=== PATIENT | female | born 1955 | race Caucasian/White ===

== ENCOUNTER → 2016-09-06 | Outpatient (CLI) | payer BC ==
[~2016-09-06] MED LIST: ACYC1CAP8 PO; ALBU1AER9 INH; CHOL100010 PO; CLTP PO; FLVHFA110 INH; MELO7.5T7 PO; MULT-506 PO; RANI150T3 PO; citrucel PO
== END | disposition home or self-care (01) ==
LOC: C.PAPS 14:14
PROVIDERS: ATTEND Obstetrics & Gynecology
DX: Z01.419 Encounter for gynecological examination (general) (routine) without abnormal findings (principal); Z78.0 Asymptomatic menopausal state

== ENCOUNTER → 2016-12-10 | Outpatient (CLI) | payer BC ==
[~2016-12-10] MED LIST changes: +ACYC-57 PO; -ACYC1CAP8 PO; +ASPEC81 PO; +CONJ0.3T3 PO; +FEXO1TAB49 PO; +FSMD/70 PO; +VENL37.593 PO
== END | disposition home or self-care (01) ==
LOC: C.MAMM 10:35
PROVIDERS: ATTEND Internal Medicine Endocrinology, Diabetes & Metabolism
DX: M81.0 Age-related osteoporosis without current pathological fracture (principal); M85.851 Other specified disorders of bone density and structure, right thigh; M85.852 Other specified disorders of bone density and structure, left thigh

== ENCOUNTER → 2017-01-17 | Outpatient (CLI) | payer BC | END | disposition home or self-care (01) | LOC: C.RDSM 08:06 | PROVIDERS: ATTEND Physical Medicine & Rehabilitation Sports Medicine | DX: M18.12 Unilateral primary osteoarthritis of first carpometacarpal joint, left hand (principal) ==

== ENCOUNTER 2017-06-10 02:28 | Observation (INO) | payer BC ==
[~2017-06-10] VITALS: Ht 157.5 cm; Wt 67.0 kg
[~2017-06-10 02:28] MED LIST changes: -ACYC-57 PO; +ACYC1CAP8 PO; -ASPEC81 PO; -CONJ0.3T3 PO; -FEXO1TAB49 PO; -FSMD/70 PO; -VENL37.593 PO
[2017-06-10] MEDS ORDERED: FEXO1TAB49 PO (03:02)
[2017-06-10] MEDS ORDERED: FSMD/70 PO (03:05)
[2017-06-10] MEDS ORDERED: CONJ0.3T3 PO (03:06)
[2017-06-10] MEDS ORDERED: VENL37.593 PO (03:08)
[2017-06-10 03:17] LABS: MANUAL MICROSCOPIC REQUIRED? NO; REVIEW REQ? NO; URINE APPEARANCE CLEAR (CLEAR); URINE BILIRUBIN NEG (NEG); URINE COLOR YELLOW; URINE EPITHELIAL CELL AUTO >30 /lpf (0-5); URINE NITRITE NEG (NEG); URINE PH 5.5 (4.5-7.5); URINE SPECIFIC GRAVITY 1.027 (1.000-1.030); UROBILINOGEN NEG (NEG); ZZUR CULT IF INDIC CLEAN CATCH YES
--- NOTE | 2017-06-10 03:25 | EMERGENCY ROOM VISIT NOTE ---
History Report prepared by Carmen: Destin Jackson Under the Supervision of: Dr. Maryellen Taylor D.O. First contact with patient: 02:41 Chief Complaint: OTHER COMPLAINT Stated Complaint: MEMORY LOSS UP TO 6 MONTHS History of Present Illness The patient is a 62 year old female who presents to the Emergency Room with complaints of constant memory loss and confusion starting between 0100 to 0200. The patient's son states that the patient was normally on the computer around 0100, and then at 0200 she came to him, and she was confused. Additionally, the son states that the patient was complaining of a coughing fit. The patient recently was put on an inhaler for her asthma either yesterday or today for a worsening cough over the past couple of months. The family states that the patient is not remember things from a long time ago as well as recent things, and she has been asking the same questions repeatedly. The family states that everything was normal yesterday prior to this episode, thought they state that the patient had a fall off of a ladder a few days ago, though she was fine afterwards. Pt denies headache, change in vision, fevers, chest pain, shortness of breath, nausea, vomiting, diarrhea, pain with urination, and melena. Source of History: patient, family Onset: [id number] this morning Position: other (global) Quality: other (memory loss) Timing: constant Note: Associated symptoms: Confusion Review of Systems See HPI for pertinent positives & negatives. A total of 10 systems reviewed and were otherwise negative. Past Medical & Surgical Medical Problems: (1) Diverticulosis (2) Memory loss (3) Transient global amnesia Surgical Problems: (1) Hx of tubal ligation Social History Smoking Status: Never Smoker Alcohol Use: none Marital Status: Housing Status: lives with family Occupation Status: retired Current/Historical Medications Scheduled Albuterol (Proair Hfa), 2 PUFFS INH PRN Alendronate/Cholecalciferol (Fosamax+D 70MG/2800 Iu), 1 TABLET PO WK Aspirin (Aspirin EC Low Dose), 81 MG PO DAILY Calcium/Vitamin D (Caltrate 600 Plus *), 1 TAB PO BID Cholecalciferol (Vitamin D), 3,000 INTER.UNIT PO DAILY Estrog Conj/Medryoxyprog Acet (Prempro 0.3MG/1.5MG), 1 TAB PO DAILY Fexofenadine Hcl (Therese Allergy), Unknown Dose PO DAILY Fluticasone Propionate (Flovent Hfa 110MCG Inhaler *), 2 PUFF INH BID Multivitamin (Multivitamin), 1 TAB PO DAILY Venlafaxine Hcl (Venlafaxine Extended Rel), 37.5 MG PO BID [citrucel], 1 TAB PO DAILY Allergies Coded Allergies: Shellfish (Verified Allergy, Unknown, unknown, 06/10/17) Physical Exam Vital Signs Date Time Temp Pulse Resp B/P (MAP) Pulse Ox O2 Delivery O2 Flow Rate FiO2 06/10/17 04:55 85 18 143/97 96 Room Air 06/10/17 03:42 86 18 141/90 97 Room Air 06/10/17 02:47 94 06/10/17 02:36 36.8 93 20 171/98 96 Room Air Physical Exam GENERAL: alert, well appearing, well nourished, no distress, non-toxic EYE EXAM: normal conjunctiva, PERRL and EOM's grossly intact OROPHARYNX: no exudate, no erythema, lips, buccal mucosa, and tongue normal and mucous membranes are moist NECK: supple, no nuchal rigidity, no adenopathy, non-tender LUNGS: Clear to auscultation. Normal chest wall mechanics HEART: no murmurs, S1 normal and S2 normal ABDOMEN: abdomen soft, non-tender, normo-active bowel sounds, no masses, no rebound or guarding. BACK: Back is symmetrical on inspection and there is no deformity, no midline tenderness, no CVA tenderness. SKIN: no rashes and no bruising UPPER EXTREMITIES: upper extremities are grossly normal. LOWER EXTREMITIES: No pitting edema. NEURO EXAM: Normal sensorium, cranial nerves II-XII intact, normal speech, no weakness of arms, no weakness of legs. No drift. Finger to nose intact. Sensation intact. Orientation could not remember the month, president, and stated that the month was 2015. GCS 15 Medical Decision & Procedures ER Provider Diagnostic Interpretation: X-ray results have been interpreted by me. CHEST ONE VIEW PORTABLE: No cardiomegaly. No effusion. No wide mediastinum. No focal infiltrate. Radiology results have been interpreted by the radiologist and reviewed by me. CT HEAD: No ICH, mass effect or edema. No skull fracture. Polyp or mucous retention cyst in left maxillary sinus. Radiologist: Janna Gurrola M.D. Laboratory Results 06/10/17 03:22 Red Blood Count 4.42, Mean Corpuscular Volume 89.6, Mean Corpuscular Hemoglobin 31.4, Mean Corpuscular Hemoglobin Concent 35.1, Mean Platelet Volume 9.1, Neutrophils (%) (Auto) 58.7, Lymphocytes (%) (Auto) 25.5, Monocytes (%) (Auto) 13.7, Eosinophils (%) (Auto) 1.0, Basophils (%) (Auto) 0.3, Neutrophils # (Auto ) 5.17, Lymphocytes # (Auto) 2.25, Monocytes # (Auto) 1.21, Eosinophils # (Auto ) 0.09, Basophils # (Auto) 0.03 06/10/17 03:22 Test 06/10/17 03:07 06/10/17 03:22 Urine Color YELLOW Urine Appearance CLEAR (CLEAR) Urine pH 5.5 (4.5-7.5) Urine Specific [place] 1.027 (1.000-1.030) Urine Protein NEG (NEG) Urine Glucose (UA) NEG (NEG) Urine Ketones TRACE (NEG) Urine Occult Blood NEG (NEG) Urine Nitrite NEG (NEG) Urine Bilirubin NEG (NEG) Urine Urobilinogen NEG (NEG) Urine Leukocyte Esterase MODERATE (NEG) Urine WBC (Auto) 10-30 /hpf (0-5) Urine RBC (Auto) 0-4 /hpf (0-4) Urine Hyaline Casts (Auto) 1-5 /lpf (0-5) Urine Epithelial Cells (Auto) >30 /lpf (0-5) Urine Bacteria (Auto) NEG (NEG) White Blood Count 8.82 K/uL (4.8-10.8) Red Blood Count 4.42 M/uL (4.2-5.4) Hemoglobin 13.9 g/dL (12.0-16.0) Hematocrit 39.6 % (37-47) Mean Corpuscular Volume 89.6 fL (80-100) Mean Corpuscular Hemoglobin 31.4 pg (25-34) Mean Corpuscular Hemoglobin Concent 35.1 g/dl (32-36) Platelet Count 282 K/uL (130-400) Mean Platelet Volume 9.1 fL (7.4-10.4) Neutrophils (%) (Auto) 58.7 % Lymphocytes (%) (Auto) 25.5 % Monocytes (%) (Auto) 13.7 % Eosinophils (%) (Auto) 1.0 % Basophils (%) (Auto) 0.3 % Neutrophils # (Auto) 5.17 K/uL (1.4-6.5) Lymphocytes # (Auto) 2.25 K/uL (1.2-3.4) Monocytes # (Auto) 1.21 K/uL (0.11-0.59) Eosinophils # (Auto) 0.09 K/uL (0-0.5) Basophils # (Auto) 0.03 K/uL (0-0.2) RDW Standard Deviation 44.4 fL (36.4-46.3) RDW Coefficient of Variation 13.5 % (11.5-14.5) Immature Granulocyte % (Auto) 0.8 % Immature Granulocyte # (Auto) 0.07 K/uL (0.00-0.02) Prothrombin Time 10.1 SECONDS (9.0-12.0) Prothromb Time International Ratio 0.9 (0.9-1.1) Anion Gap 8.0 mmol/L (3-11) Est Creatinine Clear Calc Drug Dose 71.2 ml/min Estimated GFR () 101.6 Estimated GFR (Non- 87.7 BUN/Creatinine Ratio 31.1 (10-20) Estimated Average Glucose 103 mg/dl Hemoglobin A1c 5.2 % (4.5-5.6) Lactic Acid Level 1.4 mmol/L (0.4-2.0) Calcium Level 8.9 mg/dl (8.5-10.1) Phosphorus Level 2.8 mg/dl (2.5-4.9) Magnesium Level 2.3 mg/dl (1.8-2.4) Total Bilirubin 0.2 mg/dl (0.2-1) Aspartate Amino Transf (AST/SGOT) 17 U/L (15-37) Alanine Aminotransferase (ALT/SGPT) 32 U/L (12-78) Alkaline Phosphatase 77 U/L (45-117) Troponin I < 0.015 ng/ml (0-0.045) Total Protein 7.6 gm/dl (6.4-8.2) Albumin 3.9 gm/dl (3.4-5.0) Globulin 3.7 gm/dl (2.5-4.0) Albumin/Globulin Ratio 1.1 (0.9-2) Thyroid Stimulating Hormone (TSH) 4.350 uIu/ml (0.300-4.500) Ethyl Alcohol mg/dL < 3.0 mg/dl (0-3) Lyme Disease IgG Antibody NEG (NEG) Lyme Disease IgM Antibody NEG (NEG) Hepatitis C Antibody Screen NEG (NEG) Date/Time Source Procedure Growth Status 06/10/17 03:07 Urine , Clean Catch Urine Culture - Final MORE THAN THREE TYPES OF ORGANISMS OH... Complete Laboratory results per my review. Medications Administered Medications (Trade) Dose Ordered Sig/Marie Route Start Time Stop Time Status Last Admin Dose Admin Aspirin/Aluminum/ Magnesium/Ca Carb (Ascriptin Tab) 325 mg NOW STAT PO 06/10/17 04:44 06/10/17 04:45 DC 06/10/17 04:55 325 MG Cephalexin Monohydrate (Keflex Cap) 500 mg NOW ONCE PO 06/10/17 05:15 06/10/17 05:18 DC 06/10/17 05:29 500 MG ECG Indication: other (memory loss) Rate (beats per minute): 88 Rhythm: normal sinus Findings: no acute ischemic change, no ectopy, other (Normal intervals and axis ) ED Course 0241: The patient was evaluated in room B12. A complete history and physical exam was performed. 0444: Ascriptin 325mg PO 0506: I reevaluated the patient, and she had no change. She is still asking the same repetitive questions. 0515: Keflex Cap 500mg PO 0516: I reviewed the patient's case with Dr. Moser. He will evaluate the patient for further management. Medical Decision Differential diagnosis: Etiologies such as metabolic, infection, hypoglycemia, electrolyte abnormalities , cardiac sources, intracerebral event, toxicologic, neurologic, as well as others were entertained. Pt well appearing here and NIHSS 1. Nonfocal neuro exam at bedside and symptoms more confusion. Pt knows family/address/location, repetitive questions. No evidence of trauma on CT and on exam despite recent history. I feel more likely transient global amnesia however given age and hx of htn, needs evaluation for stroke. Given ASA after CT as a precaution. Mild UA abnormalities, started on keflex as a precaution and urine sent, however I doubt acute memory loss due to UTI. No evidence of bacteremia/sepsis. Pt nervous about upcoming trip, however family denies any other recent changes or stressors. No med changes. Doubt related to drug/etoh use. Mild htn noted in the ER, thought most likely due to anxiety over situation, however needs monitoring. I did not feel pt presentation consistent with acute cva, did not feel pt warranted tPA. NIHSS <4. Head Trauma GCS Score: 15 Medication Reconcilliation Current Medication List: was personally reviewed by me Blood Pressure Screening Patient's blood pressure: Elevated blood pressure Blood pressure disposition: Elevated BP felt to be situational Monitored by the hospitalist Consults Time Called: 050 Consulting Physician: Dr. Moser Returned Call: 0516 I reviewed the patient's case with Dr. Moser. He will evaluate the patient for further management. Impression Primary Impression: Altered mental status Additional Impression: Amnesia Scribe Attestation The scribe's documentation has been prepared under my direction and personally reviewed by me in its entirety. I confirm that the note above accurately reflects all work, treatment, procedures, and medical decision making performed by me. Departure Information Dispostion Being Evaluated By Hospitalist Prescriptions Aspirin (Aspirin EC Low Dose) 81 Mg Ectab 81 MG PO DAILY, #90 TABS 3 Refills Prov: Todd Del Angel MD 06/10/17 Referrals Rahul Rothman M.D. (PCP) Patient Instructions My [facility] Health Problem Qualifiers Primary Impression: Altered mental status Altered mental status type: unspecified Qualified Codes: R41.82 - Altered mental status, unspecified
[2017-06-10 03:31] LABS: BASO % 0.3 %; BASO ABS # 0.03 K/uL (0-0.2); COMPLETE YES; HEMATOCRIT 39.6 % (37-47); IG% 0.8 %; LYMPH % 25.5 %; LYMPH ABS # 2.25 K/uL (1.2-3.4); MEAN CELL VOLUME 89.6 fL (80-100); MEAN CORPUSCULAR HEMOGLOBIN 31.4 pg (25-34); MEAN CORPUSCULAR HGB CONC 35.1 g/dl (32-36); MEAN PLATELET VOLUME 9.1 fL (7.4-10.4); MONO % 13.7 %; NEUT % 58.7 %; PLATELET COUNT 282 K/uL (130-400); RED BLOOD COUNT 4.42 M/uL (4.2-5.4); WHITE BLOOD COUNT 8.82 K/uL (4.8-10.8)
[2017-06-10 03:44] LABS: INR 0.9 (0.9-1.1); PROTHROMBIN TIME (PATIENT) 10.1 SECONDS (9.0-12.0)
[2017-06-10 03:50] LABS: ALT/SGPT 32 U/L (12-78); AST/SGOT 17 U/L (15-37); BLOOD UREA NITROGEN 23 mg/dl (7-18); BUN/CREATININE RATIO 31.1 (10-20); CALCIUM 8.9 mg/dl (8.5-10.1); CARBON DIOXIDE 27 mmol/L (21-32); CHLORIDE 102 mmol/L (98-107); CREATININE 0.73 mg/dl (0.60-1.20); GLUCOSE 96 mg/dl (70-99); MAGNESIUM 2.3 mg/dl (1.8-2.4); POTASSIUM 3.7 mmol/L (3.5-5.1); SODIUM 137 mmol/L (136-145)
[2017-06-10 04:01] LABS: ALB/GLOB RATIO 1.1 (0.9-2); ALKALINE PHOSPHATASE 77 U/L (45-117); PHOSPHORUS 2.8 mg/dl (2.5-4.9)
[2017-06-10 04:19] LABS: LYME DISEASE AB IGG NEG (NEG); LYME DISEASE AB IGM NEG (NEG)
[2017-06-10] MEDS ORDERED: ASPIRIN/ALUM/MAGNES/CAL CARB 325 MG TAB PO STA (04:44)
[2017-06-10] MEDS ORDERED: CEPHALEXIN MONOHYDRATE 250 MG CAP PO ONE (05:15)
[2017-06-10] MEDS ORDERED: PHARMACIST DISCHARGE MED REC CONSULT PRN (05:45)
[2017-06-10] MEDS ORDERED: ALBUTEROL HFA 8 GM INHALER INH PRN (05:45)
--- NOTE | 2017-06-10 06:07 | History and Physical ---
History & Physical Date & Time of Service: Jun 10, 2017 at 05:49 Chief Complaint: Memory Loss Up To 6 Months Primary Care Physician: Rahul Rothman M.D. History of Present Illness Source: patient, family 62 y/o F Hx asthma, depression. Pt had acute onset of memory loss the prior afternoon. She was repeating herself and could not recall what she had been doing earlier in the day. She denies a headache, slurred speech, unilateral weakness or recent illness. She has had coughing fits related to asthma recently. She also describes falling off a ladder 4 days ago but denies she suffered any head trauma. She is oriented x 2 at the time of arrival and perseverating on a trip to [place] which her and her are supposed to take this afternoon. Past Medical/Surgical History Medical Problems: (1) Diverticulosis Status: Resolved Surgical Problems: (1) Hx of tubal ligation Status: Resolved Social History Smoking Status: Never Smoker Marital Status: Housing status: lives with family Occupational Status: retired Multi-Drug Resistant Organisms History of MDRO: No Allergies Coded Allergies: Shellfish (Verified Allergy, Unknown, unknown, 06/10/17) Home Medications Scheduled Albuterol (Proair Hfa), 2 PUFFS INH PRN Alendronate/Cholecalciferol (Fosamax+D 70MG/2800 Iu), 1 TABLET PO WK Calcium/Vitamin D (Caltrate 600 Plus *), 1 TAB PO BID Cholecalciferol (Vitamin D), 3,000 INTER.UNIT PO DAILY Estrog Conj/Medryoxyprog Acet (Prempro 0.3MG/1.5MG), 1 TAB PO DAILY Fexofenadine Hcl (Therese Allergy), Unknown Dose PO DAILY Fluticasone Propionate (Flovent Hfa 110MCG Inhaler *), 2 PUFF INH BID Meloxicam (Mobic), 7.5 MG PO DAILY Multivitamin (Multivitamin), 1 TAB PO DAILY Venlafaxine Hcl (Venlafaxine Extended Rel), 37.5 MG PO BID [citrucel], 1 TAB PO DAILY Physical Exam Vital Signs Date Time Temp Pulse Resp B/P (MAP) Pulse Ox O2 Delivery O2 Flow Rate FiO2 06/10/17 04:55 85 18 143/97 96 Room Air 06/10/17 03:42 86 18 141/90 97 Room Air 06/10/17 02:47 94 06/10/17 02:36 36.8 93 20 171/98 96 Room Air General Appearance: WD/WN, + pertinent finding (Average weight, middle aged F - appears hyperactive - no acute distress) Head: normocephalic Eyes: normal inspection ENT: normal ENT inspection, pharynx normal Neck: supple, no JVD Respiratory/Chest: chest non-tender, lungs clear, normal breath sounds Cardiovascular: regular rate, rhythm, no edema, no gallop Abdomen/GI: normal bowel sounds, non tender, soft Back: normal inspection, no CVA tenderness, no muscle spasm, normal range of motion Extremities/Musculoskelatal: normal inspection, no calf tenderness, normal capillary refill Neurologic/Psych: certified orthoptist II-XII nml as tested, no motor/sensory deficits, alert, normal mood/affect, normal reflexes, + pertinent finding (There are no motor or sensory deficits - the pt cannot recall the date including month/year) Skin: normal color, warm/dry, no rash Diagnostics Laboratory Results Results Past 24 Hours Test 06/10/17 03:07 06/10/17 03:22 06/10/17 05:45 Range/Units Urine Color YELLOW Urine Appearance CLEAR CLEAR Urine pH 5.5 4.5-7.5 Urine Specific [place] 1.027 1.000-1.030 Urine Protein NEG NEG Urine Glucose (UA) NEG NEG Urine Ketones TRACE NEG Urine Occult Blood NEG NEG Urine Nitrite NEG NEG Urine Bilirubin NEG NEG Urine Urobilinogen NEG NEG Urine Leukocyte Esterase MODERATE NEG Urine WBC (Auto) 10-30 0-5 /hpf Urine RBC (Auto) 0-4 0-4 /hpf Urine Hyaline Casts (Auto) 1-5 0-5 /lpf Urine Epithelial Cells (Auto) >30 0-5 /lpf Urine Bacteria (Auto) NEG NEG White Blood Count 8.82 4.8-10.8 K/uL Red Blood Count 4.42 4.2-5.4 M/uL Hemoglobin 13.9 12.0-16.0 g/dL Hematocrit 39.6 37-47 % Mean Corpuscular Volume 89.6 80-100 fL Mean Corpuscular Hemoglobin 31.4 25-34 pg Mean Corpuscular Hemoglobin Concent 35.1 32-36 g/dl Platelet Count 282 130-400 K/uL Mean Platelet Volume 9.1 7.4-10.4 fL Neutrophils (%) (Auto) 58.7 % Lymphocytes (%) (Auto) 25.5 % Monocytes (%) (Auto) 13.7 % Eosinophils (%) (Auto) 1.0 % Basophils (%) (Auto) 0.3 % Neutrophils # (Auto) 5.17 1.4-6.5 K/uL Lymphocytes # (Auto) 2.25 1.2-3.4 K/uL Monocytes # (Auto) 1.21 0.11-0.59 K/uL Eosinophils # (Auto) 0.09 0-0.5 K/uL Basophils # (Auto) 0.03 0-0.2 K/uL RDW Standard Deviation 44.4 36.4-46.3 fL RDW Coefficient of Variation 13.5 11.5-14.5 % Immature Granulocyte % (Auto) 0.8 % Immature Granulocyte # (Auto) 0.07 0.00-0.02 K/uL Prothrombin Time 10.1 9.0-12.0 SECONDS Prothromb Time International Ratio 0.9 0.9-1.1 Sodium Level 137 136-145 mmol/L Potassium Level 3.7 3.5-5.1 mmol/L Chloride Level 102 98-107 mmol/L Carbon Dioxide Level 27 21-32 mmol/L Anion Gap 8.0 3-11 mmol/L Blood Urea Nitrogen 23 7-18 mg/dl Creatinine 0.73 0.60-1.20 mg/dl Est Creatinine Clear Calc Drug Dose 71.2 ml/min Estimated GFR () 101.6 Estimated GFR (Non- 87.7 BUN/Creatinine Ratio 31.1 10-20 Random Glucose 96 70-99 mg/dl Lactic Acid Level 1.4 0.4-2.0 mmol/L Calcium Level 8.9 8.5-10.1 mg/dl Phosphorus Level 2.8 2.5-4.9 mg/dl Magnesium Level 2.3 1.8-2.4 mg/dl Total Bilirubin 0.2 0.2-1 mg/dl Aspartate Amino Transf (AST/SGOT) 17 15-37 U/L Alanine Aminotransferase (ALT/SGPT) 32 12-78 U/L Alkaline Phosphatase 77 45-117 U/L Troponin I < 0.015 0-0.045 ng/ml Total Protein 7.6 6.4-8.2 gm/dl Albumin 3.9 3.4-5.0 gm/dl Globulin 3.7 2.5-4.0 gm/dl Albumin/Globulin Ratio 1.1 0.9-2 Thyroid Stimulating Hormone (TSH) 4.350 0.300-4.500 uIu/ml Ethyl Alcohol mg/dL < 3.0 0-3 mg/dl Lyme Disease IgG Antibody NEG NEG Lyme Disease IgM Antibody NEG NEG Microbiology Results 06/10/17 Urine Culture, Received Pending Diagnostic Radiology CT head - no acute findings Normal EKG Impression Assessment and Plan 62 y/o F Hx asthma, depression. Pt had acute onset of memory loss the prior afternoon. She was repeating herself and could not recall what she had been doing earlier in the day. She denies a headache, slurred speech, unilateral weakness or recent illness. She has had coughing fits related to asthma recently. She also describes falling off a ladder 4 days ago but denies she suffered any head trauma. She is oriented x 2 at the time of arrival and perseverating on a trip to [place] which her and her are supposed to take this afternoon. 1) Acute memory loss - no additional focal deficits noted - MRA/MRA ordered, neuro consul requested. TGA is more likely than acute CVA however, she will receive ASA and a Statin pending neuro evaluation. 2) Asthma - cont Albuterol, Fluticasone 3) Depression - cont Venlafaxine Full code - Heparin prophylaxis Total time for this admit including review of labs, meds, imaging - discussion with pt and ER attending - 38 min Level of Care Telemetry Resuscitation Status FULL RESUSCITATION VTE Prophylaxis VTE Risk Assessment Done? Y/N: Yes Risk Level: Low Given or contraindicated: Enoxaparin (Lovenox)SQ
[2017-06-10] MEDS ORDERED: IV FLUIDS COMPLETED PRN (06:30)
--- NOTE | 2017-06-10 06:32 | DIAGNOSTIC IMAGING REPORT ---
HEAD WITHOUT CONTRAST (CT) CLINICAL HISTORY: 62 years-old Female with confusion, ?trauma. Acute confusion status post trauma TECHNIQUE: Multiple axial CT images of the head were obtained without contrast. A dose lowering technique was utilized adhering to the principles of ALARA. CT DOSE: 537.48 mGy.cm COMPARISON: CT head 09/19/2011. FINDINGS: No acute intracranial hemorrhage, midline shift, mass, large territorial ischemia or abnormal extra-axial collection. The calvarium is intact. The mastoid air cells, and middle ear cavities are clear. Moderate polypoid mucosal thickening of the left maxillary sinus. IMPRESSION: No acute intracranial abnormality. The above report was generated using voice recognition software. It may contain grammatical, syntax or spelling errors. Electronically signed by: James Vaz M.D. 06/10/2017 6:30 AM Dictated Date/Time: 06/10/2017 6:29 AM
--- NOTE | 2017-06-10 06:36 | DIAGNOSTIC IMAGING REPORT ---
CHEST ONE VIEW PORTABLE HISTORY: 62 years-old Female confusion acute confusion with memory loss COMPARISON: None available TECHNIQUE: Portable upright AP view of the chest FINDINGS: Cardiac mediastinal and hilar silhouettes are within normal limits. No pneumothorax, pleural effusion, focal airspace consolidation or overt pulmonary edema. Evidence of prior rotator cuff repair of the right shoulder. 4 mm bony density adjacent to the right humeral greater tuberosity suspicious for rotator cuff calcific tendinosis. Bones are grossly intact. Degenerative changes are seen about the bilateral shoulders. IMPRESSION: No acute cardiopulmonary process. The above report was generated using voice recognition software. It may contain grammatical, syntax or spelling errors. Electronically signed by: James Vaz M.D. 06/10/2017 6:34 AM Dictated Date/Time: 06/10/2017 6:33 AM
[2017-06-10 06:40] VITALS: BP 159/100; PULSE 89; TEMP 37.2; O2SAT 93; Ht 157.5 cm; Wt 67.0 kg
[2017-06-10 07:21] LABS: ESTIMATED AVERAGE GLUCOSE 103 mg/dl; HA1C FLAG Normal (Normal)
[2017-06-10 07:44] VITALS: BP 144/85; PULSE 87; TEMP 36.7; O2SAT 96
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
[2017-06-10] MEDS ORDERED: VENLAFAXINE HCL 37.5 MG TAB PO SCH (09:00)
[2017-06-10] MEDS ORDERED: ATORVASTATIN 20 MG TAB PO SCH (09:00)
[2017-06-10] MEDS ORDERED: ASPIRIN/ALUM/MAGNES/CAL CARB 325 MG TAB PO SCH (09:00)
[2017-06-10 11:21] VITALS: BP 136/84; PULSE 76; TEMP 36.9; O2SAT 96
--- NOTE | 2017-06-10 12:47 | ECHOCARDIOGRAM REPORT ---
*NOTICE TO RECEIVING DEMOCRAT AGENCY This information is strictly Confidential and protected under [place] law. [place] law prohibits you from making any further disclosure of this information unless further disclosure is expressly permitted by the written consent of the person to whom it pertains or is authorized by law. A general authorization for the release of medical or other information is not sufficient for this purpose. Hospital accepts no responsibility if the information is made available to any other person, INCLUDING THE PATIENT. Interpretation Summary * Name: АНДРЕЙ STOVER Study Date: 06/10/2017 10:17 AM BP: 144/85 mmHg * Patient Location: C.2E\S\E212\S\1 HR: 87 * : 1955 (M/d/yyyy) Gender: Female Height: 62 in * Age: 62 yrs Ethnicity: CA Weight: 147 lb * Ordering Physician: Todd Del Angel * Performed By: Geneva Merida RDCS * * Reason For Study: TIA, EVAL FOR SOURCE OF THROMBUS * BSA: 1.7 m2 * -- Conclusions -- * Left ventricular systolic function is normal. * Grade I diastolic dysfunction, (abnormal relaxation pattern). * Injection of contrast documented no interatrial shunt. * No obvious source of cardiac emboli, but image quality was suboptimal. Procedure Details * A complete two-dimensional transthoracic echocardiogram was performed (2D, M-mode, Doppler and color flow Doppler). * The study was technically difficult. * There were technical limitations due to patient'sbody habitus * A contrast injection of Definity was performed to improve assessment of LV function. * Contrast was injected into an intravenous site in the left arm. * One vial of Definity ultrasound contrast was diluted in normal saline to a total volume of 10 ml. A total of '3' ml of solution was administered during imaging. * Lot # [id number] of Definity utilized for procedure. * Expiration date 06/04. * The attending nurse who injected the contrast agent was LUIZA MCGRATH RN. * A saline contrast injection was performed to assess for cardiac shunting. * The injection was performed through an intravenous line in the left arm. * The attending nurse who injected the saline contrast was LUIZA MCGRATH RN. * A total of 20 cc of agitated saline was given. Left Ventricle * The left ventricle is normal in size. * There is normal left ventricular wall thickness. * Ejection Fraction = 55-60%. * Left ventricular systolic function is normal. * Grade I diastolic dysfunction, (abnormal relaxation pattern). * The left ventricular wall motion is normal. Right Ventricle * The right ventricle is grossly normal size. * The right ventricular systolic function is qualitatively normal. * The right ventricular systolic function is normal as assessed by tricuspid annular plane systolic excursion (TAPSE) (normal >1.5 cm). Atria * The left atrial size is normal. * Right atrial size is normal. * Injection of contrast documented no interatrial shunt. Mitral Valve * The mitral valve is grossly normal. * Significant mitral regurgitation is absent. Tricuspid Valve * The tricuspid valve is not well visualized, but is grossly normal. * Significant tricuspid regurgitation is absent. Aortic Valve * The aortic valve is not well visualized. * No hemodynamically significant valvular aortic stenosis. * There is no significant aortic regurgitation. Pericardium/Pleural * There is no pericardial effusion. Great Vessels * Normal inferior vena cava diameter and respiratory variation suggests normal central venous pressure. MMode 2D Measurements and Calculations IVSd 1.0 cm IVSs 1.0 cm LVIDd 3.7 cm LVIDs 2.5 cm LVPWd 1.1 cm LVPWs 1.9 cm IVS/LVPW 0.91 FS 31.6 % EDV(Teich) 58.9 ml ESV(Teich) 23.4 ml EF(Teich) 60.3 % EDV(cubed) 51.5 ml ESV(cubed) 16.5 ml EF(cubed) 67.9 % % IVS thick -3.07 % % LVPW thick 67.1 % LV mass(C)d 127.9 grams LV mass(C)dI 76.3 grams/m\S\2 LV mass(C)s 121.5 grams LV mass(C)sI 72.4 grams/m\S\2 SV(Teich) 35.6 ml SI(Teich) 21.2 ml/m\S\2 SV(cubed) 35.0 ml SI(cubed) 20.9 ml/m\S\2 ACS 1.6 cm asc Aorta Diam 2.8 cm LVOT diam 1.8 cm LVOT area 2.5 cm\S\2 LVAd ap4 31.7 cm\S\2 LVLd ap4 7.8 cm EDV(MOD-sp4) 103.5 ml EDV(sp4-el) 108.8 ml LVAs ap4 17.7 cm\S\2 LVLs ap4 6.5 cm ESV(MOD-sp4) 39.9 ml ESV(sp4-el) 40.9 ml EF(MOD-sp4) 61.5 % EF(sp4-el) 62.4 % LVAd ap2 26.3 cm\S\2 LVLd ap2 6.7 cm EDV(MOD-sp2) 84.6 ml EDV(sp2-el) 87.0 ml LVAs ap2 14.2 cm\S\2 LVLs ap2 5.1 cm ESV(MOD-sp2) 32.4 ml ESV(sp2-el) 33.6 ml EF(MOD-sp2) 61.7 % EF(sp2-el) 61.3 % LVLd %diff -16.33 % EDV(MOD-bp) 101.6 ml LVLs %diff -27.91 % ESV(MOD-bp) 40.7 ml EF(MOD-bp) 60.0 % SV(MOD-sp4) 63.6 ml SI(MOD-sp4) 37.9 ml/m\S\2 SV(MOD-sp2) 52.2 ml SI(MOD-sp2) 31.1 ml/m\S\2 SV(MOD-bp) 60.9 ml SI(MOD-bp) 36.3 ml/m\S\2 SV(sp4-el) 67.9 ml SI(sp4-el) 40.5 ml/m\S\2 SV(sp2-el) 53.4 ml SI(sp2-el) 31.8 ml/m\S\2 Doppler Measurements and Calculations MV E max rafi 58.2 cm/sec MV A max rafi 67.6 cm/sec MV E/A 0.86 MV dec time 0.24 sec Ao V2 max 87.1 cm/sec Ao max PG 3.0 mmHg Ao max PG (full) -0.50 mmHg LOLIS(V,A) 2.7 cm\S\2 LOLIS(V,D) 2.7 cm\S\2 LV V1 max PG 3.5 mmHg LV V1 max 94.0 cm/sec PA V2 max 58.7 cm/sec PA max PG 1.4 mmHg
--- NOTE | 2017-06-10 12:51 | DIAGNOSTIC IMAGING REPORT ---
MRA HEAD WITHOUT CONTRAST HISTORY: Mental status change Stroke - Attention to [place] TECHNIQUE: 3-D [id number] MRA of the brain was performed without contrast. COMPARISON STUDY: None. FINDINGS: Visualized intracranial internal carotid arteries, distal vertebral arteries, and basilar artery are widely patent. There is no significant stenosis, occlusion, or aneurysm seen within the bilateral ACAs, MCAs, or motorcycle repair shop supervisor. IMPRESSION: No significant stenosis, occlusion, or aneurysm within the [place]. The above report was generated using voice recognition software. It may contain grammatical, syntax or spelling errors. Electronically signed by: Mingo Thacker M.D. 06/10/2017 12:50 PM Dictated Date/Time: 06/10/2017 12:46 PM
--- NOTE | 2017-06-10 13:23 | DIAGNOSTIC IMAGING REPORT ---
MRI OF THE BRAIN WITHOUT IV CONTRAST CLINICAL HISTORY: Strokelike symptoms. COMPARISON STUDY: CT of the brain dated 06/10/2017. TECHNIQUE: MRI of the brain was performed utilizing various T1 and T2-weighted sequences in the axial, sagittal, and coronal planes. IV contrast was not administered for this examination. The examination is modestly degraded by motion artifact. FINDINGS: Brain parenchyma: There is minimal periventricular microangiopathic disease. The brain parenchyma is otherwise normal in appearance. There is no hemorrhage or mass effect. There is no restricted diffusion to suggest acute ischemia. Goddard-white matter differentiation is preserved. No extra-axial fluid collection is seen. The cerebellar tonsils are normal in configuration. Ventricles, sulci, and cisterns: Normal in configuration. Pituitary and sella: Unremarkable. Intracranial vasculature: Normal flow voids are maintained at the skull base. Orbits: The bony orbits are grossly intact. Orbital contents are normal in appearance. Sinuses and mastoids: There is a 2.3 cm retention cyst in the left maxillary antrum. The remaining paranasal sinuses are clear and the mastoid air cells are well pneumatized. Calvarium: Unremarkable. Cervical cord: Partially visualized cervical spinal cord is normal in morphology and signal intensity. IMPRESSION: No acute intracranial abnormality. Electronically signed by: Riley Albrecht M.D. 06/10/2017 1:22 PM Dictated Date/Time: 06/10/2017 1:12 PM
--- NOTE | 2017-06-10 13:46 | DIAGNOSTIC IMAGING REPORT ---
NECK MRA HISTORY: Stroke TECHNIQUE: [id number] and gadolinium-enhanced MRA of the neck was performed both before and after the intravenous administration of contrast. All measurements were calculated based on NASCET criteria. The patient was injected with 6.7 cc of intravenous Gadavist. COMPARISON STUDY: None. FINDINGS: The aortic arch and proximal great vessels are widely patent. There is no significant stenosis, occlusion, or dissection identified within the bilateral common carotid, internal carotid, or vertebral arteries. A mild beaded appearance of the mid upper cervical left vertebral artery is likely artifactual IMPRESSION: No significant stenosis, occlusion, or dissection identified within the carotid or vertebral arteries. Electronically signed by: Curtis Tena M.D. 06/10/2017 1:45 PM Dictated Date/Time: 06/10/2017 1:43 PM
[2017-06-10] MEDS ORDERED: HEPARIN SOD 5000 UNIT/0.5 ML CARP SQ SCH (14:00)
[2017-06-10 16:48] VITALS: BP 115/80; PULSE 83; TEMP 36.8; O2SAT 95
[2017-06-10] MEDS ORDERED: ASPEC81 PO (16:57)
--- NOTE | 2017-06-10 17:09 | Discharge Instructions ---
Discharge Instructions Date of Service Jun 10, 2017. Admission Reason for Admission: Memory Loss Discharge Discharge Diagnosis / Problem: Transient global amnesia Discharge Goals Goal(s): Learn about illness, Diagnostic testing, Therapeutic intervention Activity Recommendations Activity Limitations: as noted below Would avoid heavy exertional activity (going to the gym, etc) and "stressful" physical or emotional events in the next 2-3 days if possible. . Instructions / Follow-Up Instructions / Follow-Up From Dr. Del Angel: It is suspected that the cause of your memory lapse was from "transient global amnesia." This condition causes a temporary loss of memory over several hours and then gradually resolves. The exact cause is unknown but often brought on by physical or emotional stress. Please see the [facility] handout for more detailed information. Dr. Velez from Neurology recommends that you take a baby aspirin 81mg once daily. All of your lab testing, EKG, and telemetry monitoring were normal. Lyme's testing was also normal. Since you will now be taking aspirin daily please stop the daily use of the meloxicam. Would recommend only using the meloxicam on an as needed basis if absolutely necessary. Use of both agents daily for long periods of time could lead to stomach ulcers, kidney problems, etc. Follow-up - Please see Dr. Sargent at the [facility] Internal Medicine office on Friday, , at 240pm. See office information in this handout. Current Hospital Diet Patient's current hospital diet: AHA Diet (Heart Healthy) Discharge Diet Recommended Diet: Regular Diet Procedures Procedures Performed: MRI brain - no evidence of stroke. MRA brain - no evidence of blocked artery in the brain or aneurysm. MRA neck - no evidence of blocked artery in the neck or aneurysm. Echocardiogram - normal heart function, no blood clots, normal valves. Pending Studies Studies pending at discharge: no Laboratory Results Hemoglobin A1c Test 06/10/17 03:22 Range/Units Estimated Average Glucose 103 mg/dl Hemoglobin A1c 5.2 4.5-5.6 % Medical Emergencies . Who to Call and When: Medical Emergencies: If at any time you feel your situation is an emergency, please call 911 immediately. . Non-Emergent Contact Non-Emergency issues call your: Primary Care Provider Call Non-Emergent contact if: you have any medication questions . . "Provider Documentation" section prepared by Todd Del Angel. . VTE Core Measure Inpt VTE Proph given/why not?: Enoxaparin (Lovenox)SQ
[2017-06-10 17:40] VITALS: BP 115/80; PULSE 83; TEMP 36.8; O2SAT 95
--- NOTE | 2017-06-11 06:08 | Discharge Summary ---
Discharge Summary Date of Service Jun 11, 2017. Discharge Summary Admission Date: Jun 10, 2017 at 05:40 Discharge Date: Jun 10, 2017 Discharge Disposition: Home Principal Diagnosis: transient global amnesia Problems/Secondary Diagnoses: asthma anxiety elevated BP without diagnosis of HTN Procedures: 1. CT head - normal. 2. MRI brain - normal. 3. MRA brain - normal. 4. MRA neck - normal. 5. Echocardiogram - -- Conclusions -- * Left ventricular systolic function is normal. * Grade I diastolic dysfunction, (abnormal relaxation pattern). * Injection of contrast documented no interatrial shunt. * No obvious source of cardiac emboli, but image quality was suboptimal. Consultations: neurology - Prasanna Velez MD Medication Reconciliation New Medications: Aspirin (Aspirin EC Low Dose) 81 Mg Ectab 81 MG PO DAILY, #90 TABS 3 Refills Continued Medications: Albuterol (Proair Hfa) Aers 2 PUFFS INH PRN Alendronate/Cholecalciferol (Fosamax+D 70MG/2800 Iu) 70 Mg Tab 1 TABLET PO WK, TAB Calcium/Vitamin D (Caltrate 600 Plus *) Tab 1 TAB PO BID, 0 Refills Cholecalciferol (Vitamin D) 1,000 Inter.unit Tab 3000 INTER.UNIT PO DAILY, 0 Refills Estrog Conj/Medryoxyprog Acet (Prempro 0.3MG/1.5MG) Tab 1 TAB PO DAILY, TAB Fexofenadine Hcl (Therese Allergy) Unknown Strength Tab Unknown Dose PO DAILY for 14 Days, TAB 2 Refills Fluticasone Propionate (Flovent Hfa 110MCG Inhaler *) Aero 2 PUFF INH BID, 0 Refills Multivitamin (Multivitamin) Tab 1 TAB PO DAILY, 0 Refills Venlafaxine Hcl (Venlafaxine Extended Rel) 37.5 Mg Cap 37.5 MG PO BID, CAP [citrucel] () 1 TAB PO DAILY Discontinued Medications: Meloxicam (Mobic) 7.5 Mg Tab 7.5 MG PO DAILY Discharge Exam Physical Exam: General Appearance: WD/WN, no apparent distress ENT: pharynx normal Neck: no JVD Respiratory/Chest: lungs clear, no respiratory distress, no accessory muscle use Cardiovascular: regular rate, rhythm, no gallop, no murmur, normal peripheral pulses Abdomen / GI: normal bowel sounds, non tender, soft, no organomegaly Extremities: no pedal edema Neurologic/Psychiatric: website optimization strategist II-XII nml as tested, no motor/sensory deficits , alert, normal mood/affect, normal reflexes, oriented x 3 Hospital Course HISTORY OF PRESENT ILLNESS: 62 y/o F Hx asthma, depression. Pt had acute onset of memory loss the prior afternoon. She was repeating herself and could not recall what she had been doing earlier in the day. She denies a headache, slurred speech, unilateral weakness or recent illness. She has had coughing fits related to asthma recently. She also describes falling off a ladder 4 days ago but denies she suffered any head trauma. She is oriented x 2 at the time of arrival and perseverating on a trip to [place] which her and her are supposed to take this afternoon. HOSPITAL COURSE: The patient's memory and mental status completely returned to baseline during her brief observation admission. She underwent an extensive evaluation including MRI brain, MRA head/neck, echo, and telemetry - all studies were normal. She was seen in consult by Dr. Prasanna Velez, neurology, and he felt that her symptoms were consistent with an episode of transient global amnesia. Aspirin 81mg once daily was recommended at discharge by Dr. Velez. Asthma and all other medical problems remained stable while hospitalized. Lastly, although the patient had significantly elevated blood pressure at time of presentation, her BPs returned to normal without any intervention. Total Time Spent: Greater than 30 minutes This includes examination of the patient, discharge planning, medication reconciliation, and communication with other providers. Discharge Instructions Please refer to the electronic Patient Visit Report (Discharge Instructions) for additional information. Follow-Up Dr. Sargent - 06/11/17 - at 240pm Additional Copies To Rahul Rothman M.D.; Rafal Sargent M.D.
== END 2017-06-10 18:20 | disposition home or self-care (01) ==
LOC: C.EDB 02:30 → C.2E 05:40 → ENRESERV 05:48
PROVIDERS: ADMIT Internal Medicine; ATTEND Internal Medicine
DX: G45.4 Transient global amnesia (principal); J45.909 Unspecified asthma, uncomplicated; R03.0 Elevated blood-pressure reading, without diagnosis of hypertension; F41.9 Anxiety disorder, unspecified; Z79.899 Other long term (current) drug therapy

== ENCOUNTER → 2017-06-25 | Outpatient (CLI) | payer BC ==
[~2017-06-25] MED LIST changes: -ACYC1CAP8 PO; +ASPEC81 PO; +CONJ0.3T3 PO; +FEXO1TAB49 PO; +FSMD/70 PO; -MELO7.5T7 PO; -RANI150T3 PO; +VENL37.593 PO
== END | disposition home or self-care (01) ==
LOC: C.RDSM 13:00
PROVIDERS: ATTEND Physical Medicine & Rehabilitation Sports Medicine
DX: L98.9 Disorder of the skin and subcutaneous tissue, unspecified (principal)

== ENCOUNTER → 2017-06-26 | Outpatient (CLI) | payer BC ==
--- NOTE | 2017-06-27 07:52 | MAMMOGRAPHY REPORT ---
BILATERAL DIGITAL SCREENING MAMMOGRAM TOMOSYNTHESIS WITH CAD: 06/26/2017 CLINICAL HISTORY: Routine screening. Patient has no complaints. TECHNIQUE: Breast tomosynthesis in addition to standard 2D mammography was performed. Current study was also evaluated with a Computer Aided Detection (CAD) system. COMPARISON: Comparison is made to exams dated: 06/25/2016 mammogram, 06/21/2015 mammogram, 06/17/2014 mammogram, 06/16/2013 mammogram, 06/12/2012 mammogram, and 06/11/2011 mammogram - [facility]. BREAST COMPOSITION: The tissue of both breasts is heterogeneously dense, which may obscure small mas ses. FINDINGS: No suspicious masses, calcifications, or areas of architectural distortion are noted in ei ther breast. There has been no significant interval change compared to prior exams. Scattered bilater al benign-appearing calcifications are not significantly changed. No suspicious mass, architectural distortion or cluster of microcalcifications is seen. IMPRESSION: ACR BI-RADS CATEGORY 2: BENIGN There is no mammographic evidence of malignancy. A 1 year screening mammogram is recommended. The pa tient will receive written notification of the results. Approximately 10% of breast cancers are not detected with mammography. A negative mammographic report should not delay biopsy if a clinically suggestive mass is present. Roxana brown/jaden:06/26/2017 15:07:37 Liquor Rectifier: Lorri TELLO)(Raul), [facility] letter sent: Normal 1/2 BI-RADS Code: ACR BI-RADS Category 2: Benign
== END | disposition home or self-care (01) ==
LOC: C.MAMM 10:42
PROVIDERS: ATTEND Internal Medicine Geriatric Medicine
DX: Z12.31 Encounter for screening mammogram for malignant neoplasm of breast (principal)

== ENCOUNTER → 2017-10-09 | Day surgery (SDC) | payer OTHER ==
[2017-09-30 10:44] VITALS: Ht 157.5 cm; Wt 62.3 kg
[~2017-10-09] VITALS: Ht 157.5 cm; Wt 62.3 kg
[~2017-10-09] MED LIST changes: -ALBU1AER9 INH; +ALBUTEROL HFA INHALER 8.5 GM INH ONE; -ASPEC81 PO; +ASPI81TA28 PO; +ATOR10TA82 PO; +ATROPINE SULFATE 0.1 MG/ML 5ML SYR IV PRN; +BUPIVACAINE 0.5 % 5 MG/1 ML MPF 30ML VIAL ONE; +BUPIVACAINE/EPINEPHRINE 0.5% MPF 1:200,000 30 ML VIAL ONE; +CALC600T9 PO; +CEFAZOLIN 1000MG IV PUSH 7.5 ML IV SCH; +CHOL1000 PO; -CHOL100010 PO; +CHOL2000 PO; -CLTP PO; -CONJ0.3T3 PO; +DEXAMETHASONE SOD INJ 4 MG/ML VIAL ONE; +EFFSR150 PO; +EpHEDrine SULFATE 50MG/5ML SYR ONE; +EpHEDrine SULFATE INJ 50 MG/ML AMP IV PRN; +FENTANYL CITRATE INJ 50 MCG/1 ML 2 ML VIAL ONE; -FEXO1TAB49 PO; -FSMD/70 PO; +HYDR-5688 PO; +IBAN150T PO; +LACTATED RINGER'S 1000ML 1,000 ML IV SCH; +LIDOCAINE HCL 1% 20 ML VIAL ONE; +LIDOCAINE HCL 2% 2 ML VIAL (20MG/ML) ONE; +LIDOCAINE/EPINEPHRINE 1% 20 ML VIAL ONE; +MIDAZOLAM HCL 1 MG/ML 2ML VIAL ONE; +MoRPHine SULFATE 2 MG/ML CARP IV PRN; +ONDANSETRON INJ 2 MG/ML 2 ML VIAL IV PRN; +ONDANSETRON INJ 2 MG/ML 2 ML VIAL ONE; +OXYCODONE/ACETAMINOPHEN 5-325 TAB ONE; +OXYCODONE/ACETAMINOPHEN 5-325 TAB PO PRN; +PHENYLEPHRINE HCL INJ 10 MG/ML VIAL ONE; +PROB1TAB16 PO; +PROPOFOL IV EMULSION 10 MG/ML 20 ML VIAL IV ONE; +RANI150T85 PO; +ROPIVACAINE 0.5% 5 MG/ML 30 ML VIAL ONE; +SODIUM CHLORIDE 0.9% 1000ML 1,000 ML IV SCH; -VENL37.593 PO; +VNTHFA/IN INH; -citrucel PO
--- NOTE | 2017-10-09 06:53 | History & Physical Bridge Note ---
H&P Re-Evaluation Bridge Note: I have examined the patient, reviewed the History & Physical and in the interval since the performance of the History & Physical I have noted the following changes of clinical significance: No changes noted
--- NOTE | 2017-10-09 10:11 | [facility] Post Operative Brief Note ---
Immediate Operative Summary Operative Date Oct 09, 2017. Pre-Operative Diagnosis Left Thumb CMC Joint Arthritis Post-Operative Diagnosis Same Procedure(s) Performed ligament reconstuction tendon interposition arthroplasty Surgeon Dr. Stahl Grinder Set Up Operator Thread Tool Surgeon(s) Darcy Sheikh PA-C, Jaylin lund student Estimated Blood Loss 10 Findings Consistent with Post-Op Diagnosis Specimens None Drains None Anesthesia Type General Complication(s) none Disposition Accompanied Pt To Recovery: no Disposition: Recovery Room / PACU
--- NOTE | 2017-10-09 10:30 | [facility] Operative Report ---
Operative Report Operative Date Oct 09, 2017. Pre-Operative Diagnosis Left Thumb CMC Joint Arthritis Post-Operative Diagnosis Same Procedure(s) Performed ligament reconstuction tendon interposition arthroplasty Surgeon Dr. Stahl Health Information Specialist Surgeon(s) Darcy Sheikh PA-C, Jaylin lund student Estimated Blood Loss 10 Findings As above Specimens A. Trapezium Left Thumb Anesthesia Laryngeal mask Complication(s) None Disposition Recovery Room / PACU Indications Patient is a 62-year-old female with left thumb basilar joint arthritis. Her symptoms are refractory to nonsurgical methods of management and she has elected to proceed with operative intervention. She is status post the same procedure on the contralateral limb with a good result. Description of Procedure Informed consent was obtained. The patient was identified as Tressa Cano. The patient identified the operative site as the left thumb which I marked with my initials. A preoperative surgical timeout was performed. A preop dose of IV antibiotics was given. The patient was positioned supine on the OR table with the left arm on a hand table. A tourniquet was applied to the left arm. The limb was prepped and draped in the usual sterile fashion. The examination under anesthesia showed about 15-20 of metacarpophalangeal joint hyperextension equal to the opposite side. There is crepitation at the carpometacarpal joint. DVT prophylaxis was Done with foot pumps. Tourniquet inflated to 225 mmHg. A 5 cm longitudinal incision was made between the first and third dorsal compartments of the left hand. Dissection was performed down through subcutaneous tissues. The first and third as well as the second dorsal compartment tendons were identified. Careful dissection was performed proximally and the radial artery was identified traced throughout its course in the anatomic snuffbox and retracted proximally. It was preserved throughout the entire procedure. The CMC joint was then identified in the longitudinal incision was made in the joint capsule. This was followed by circumferential exposure of the trapezium using a combination of electrocautery and blunt dissection. The trapezium was then infracted in a cross shaped configuration completed with an osteotome and then removed with a rongeur. Care was taken to protect the flexor carpi radialis tendon. Small residual residual bone fragments were also excised. It was noted that there was eburnation of the distal pole of the scaphoid where it articulated with the trapezoid. 2-3 mm of the proximal trapezoid were then removed in a waferlike fashion. Axial compression of the second ray then caused no contact between the scaphoid and trapezoid. A bur hole was made into the dorsal and articular surface of the first metacarpal 1 cm away from the articular margin. The bur holes were connected with hand curettes. Attention was then turned to the forearm where a 3 cm incision was made 4 inches proximal to the distal transverse wrist crease. This was done overlying the palpable flexor carpi radialis tendon. Blunt dissection was performed down through the tissue the fascia was opened and the tendon was identified. The FCR tendon was confirmed with differential muscle action tracing it down distally into the wrist wound. Muscle was dissected away from the tendon which was then transected proximally and the tendon was then delivered into the thumb incision. Muscle was removed from the tendon which was then split down to the level of the base of the first metacarpal. One limb was then passed through the after mentioned bur hole. This was then brought back down upon itself and secured with interrupted 4-0 FiberWire sutures. The initial stitch was placed through the common FCR and then through the ligament reconstruction limb. Eventually the other limb was incorporated into this repair as well. When doing this the thumb was held out to length parallel to the base of the second metacarpal and it was held in a 80 ducted position to reduce any subluxation. I then reinforced this with several interrupted 4-0 FiberWire's. The initial anchoring stitch was then utilized to perform anchovy through the remainder of the FCR tendon strip. This was then tucked into the space initially occupied by the trapezium and tied. This was then passed through the joint capsule and tied imbricated as well. I then used 0 Vicryl to reapproximate the joint capsule incorporating the anchovy or tendon graft with it as necessary. Care was taken proximally to protect the tendons as well as the artery. The tourniquet was let down after 70 minutes of inflation. Meticulous hemostasis was performed with pressure and electrocautery. Copious irrigation was performed throughout the procedure as well as at the conclusion. The radial artery had pulsatile flow. Bleeding was controlled. The skin of the thumb incision was then closed with interrupted simple and horizontal mattress 4 -0 nylon sutures. The forearm incision was likely inspected and hemostasis was achieved and the incision was closed with 4-0 nylon horizontal mattress stitches. Local anesthetic 1% lidocaine with epinephrine and 0.5% Marcaine with epinephrine was injected into the thumb and forearm incisions at the level of the skin. A soft sterile dressing was applied. A thumb spica splint forearm based was then applied with the thumb held in the cam gripping position. Patient is awake from anesthesia without difficulty and taken to the recovery room in stable condition. There were no complications. Counts were correct at the case. Blood loss was minimal. At the conclusion of the operation I spoke the patient's and informed him of my findings. Detailed postoperative instructions. The patient will be immobilized for approximately a month in a splint or cast. She will be rehabilitated according to the [facility] rehabilitation protocol. The resected trapezium which appeared arthritic was sent for specimen. There was loss of cartilage at the base of the first metacarpal consistent with arthritis. Her bone spurs and eburnation of the trapezium with loss of articular cartilage consistent with osteoarthritis. The joint was subluxated. I attest to the content of the Intraoperative Record and any orders documented therein. Any exceptions are noted below.
--- NOTE | 2017-10-09 10:44 | Discharge Instructions-SurgCtr ---
Discharge Instructions Date of Service Oct 09, 2017. Visit Reason for Visit: Left Thumb Cmc Arthritis Discharge Discharge Diagnosis / Problem: left thumb CMC arthritis Discharge Goals Goal(s): Decrease discomfort, Improve function, Increase independence Activity Recommendations Activity Limitations: per Instructions/Follow-up section Anesthesia . Post Anesthesia Instructions: If you have had General Anesthesia or IV Sedation: * Do not drive today. * Resume driving when surgeon permits. * Do not make important decisions or sign legal documents today. * Call surgeon for: 1. Temperature elevations greater than 101 degrees F. 2. Uncontrollable pain. 3. Excessive bleeding. 4. Persistent nausea and vomiting. 5. Medication intolerance (nausea, vomiting or rash). * For nausea and vomiting use only clear liquids such as: tea, soda, bouillon until nausea subsides, then gradually increase diet as tolerated. * If you have any concerns or questions, call your surgeon's office. If physician is unavailable and it is an emergency, call 911 or go to the nearest emergency room. . Instructions / Follow-Up Instructions / Follow-Up DIET: * Resume previous diet. MEDICATIONS: * Please take your prescriptions as instructed at your pre-op appointment and/ or see medication discharge instructions listed above. * If concerns develop, call your physician's office at . SPECIAL CARE INSTRUCTIONS: * Ice left thumb as needed for pain and swelling * Elevate left hand above heart to relieve pain and swelling. * Keep dressing clean, dry, intact. * Keep splint on left hand at all times. * No use of left arm. No heavy pushing, pulling or lifting with left arm. You may do range of motion of your fingers of your left hand and elbow. * Sling left arm for comfort. You may remove when sitting for comfort. Wear sling with sleeping. * Your surgical extremity may be discolored due to prepping agents used on the skin. A bluish-green tint is a normal variant and should not cause alarm. Call your doctor at [phone] if: * Temperature above 101 degrees * Pain not relieved by pain medicine ordered * There is increased drainage or redness from any incision * You have any unanswered questions, problems or concerns. FOLLOW UP VISIT: * If not already scheduled, please call the office at to schedule a follow-up appointment. * You have a follow-up appointment scheduled with Dr. Feroz Stahl on 2017 at 10:45 AM. Diet Recommendations Home Diet: no limitations, resume previous diet Procedures Procedures Performed: ligament reconstuction tendon interposition arthroplasty Pending Studies Studies pending at discharge: no Medical Emergencies . Who to Call and When: Medical Emergencies: If at any time you feel your situation is an emergency, please call 911 immediately. . Non-Emergent Contact Non-Emergency issues call your: Surgeon Call Non-Emergent contact if: temperature is above 101, your pain is not controlled, your pain is worsening, wound has increased drainage, wound has increased redness, wound has increased pain, you have any medication questions . . "Provider Documentation" section prepared by Frida Sheikh. . [place] Drug Monitoring Program Search Results: patient reviewed within database, no issues identified
--- NOTE | 2017-10-09 10:46 | [facility] Operative Report ---
Operative Report Operative Date Oct 09, 2017. Pre-Operative Diagnosis Left Thumb CMC Joint Arthritis Post-Operative Diagnosis Same Procedure(s) Performed ligament reconstuction tendon interposition arthroplasty Surgeon Dr. Stahl Accounts Receivable Coordinator Surgeon(s) Darcy Sheikh PA-C, Jaylin lund student Estimated Blood Loss 10 Findings left thumb CMC joint arthritis Specimens A. Trapezium Left Thumb Drains None Anesthesia Type General Complication(s) none Disposition yes Recovery Room / PACU Indications Patient is a 62-year-old female who long-standing patient with Dr. Stahl with complaints of left thumb pain. X-rays were taken and confirmed left thumb CMC joint arthritis. She has attempted and failed conservative treatment. Surgical intervention was discussed and she wished to proceed with surgery. Risks and complications were explained to the patient and informed consent was obtained. Description of Procedure Patient was taken to the operating room and placed under general anesthesia. She was given 1 g of IV Ancef for surgical prophylaxis. Timeout was performed. She was prepped and draped in routine sterile fashion. I was present during the entire case, please see Dr. Stahl's operative report for further detail. Patient was awakened and transferred to recovery room in stable condition. I attest to the content of the Intraoperative Record and any orders documented therein. Any exceptions are noted below.
[2017-10-09] MEDS: FENTANYL CITRATE INJ 50 MCG/1 ML 2 ML VIAL IV PRN ×2 (11:05→11:16)
[2017-10-09 11:40] VITALS: TEMP 36.4
--- NOTE | 2017-10-09 11:59 | Anesthesia Progress Nt - [facility] ---
Anesthesia Post Op Note Date & Time Oct 09, 2017 at 11:59 Vital Signs Pain Intensity: 4 Vital Signs Past 12 Hours Date Time Temp Pulse Resp B/P (MAP) Pulse Ox O2 Delivery O2 Flow Rate FiO2 10/09/17 11:40 36.4 93 16 110/72 (85) 97 Room Air 10/09/17 11:33 36.3 92 16 112/71 97 Room Air 10/09/17 11:28 95 12 10/09/17 11:28 96 12 96 10/09/17 11:26 114/69 10/09/17 11:23 98 16 98 10/09/17 11:23 97 16 10/09/17 11:21 109/71 10/09/17 11:18 93 14 10/09/17 11:18 93 14 95 10/09/17 11:16 128/71 10/09/17 11:13 92 17 95 10/09/17 11:13 92 17 10/09/17 11:11 118/74 10/09/17 11:08 95 15 92 10/09/17 11:08 112 15 10/09/17 11:07 97 15 10/09/17 11:07 95 15 96 10/09/17 11:06 109/66 10/09/17 11:02 104 98 10/09/17 11:02 93 10/09/17 11:01 114/71 10/09/17 10:57 93 12 10/09/17 10:57 93 12 96 10/09/17 10:56 115/64 10/09/17 10:52 93 17 98 10/09/17 10:52 93 17 10/09/17 10:51 114/71 10/09/17 10:47 94 11 99 10/09/17 10:47 94 11 10/09/17 10:46 111/69 10/09/17 10:43 36.3 94 12 110/69 99 Mask 10/09/17 10:43 110/69 10/09/17 06:46 36.5 82 18 111/72 (85) 94 Room Air Notes Mental Status: alert / awake / arousable, participated in evaluation Pt Amnestic to Procedure: Yes Nausea / Vomiting: adequately controlled Pain: adequately controlled Airway Patency, RR, SpO2: stable & adequate BP & HR: stable & adequate Hydration State: stable & adequate Anesthetic Complications: no major complications apparent
[2017-10-09 12:22] VITALS: BP 109/65; PULSE 88; O2SAT 96
== END | disposition home or self-care (01) ==
LOC: X.SURG 06:37
PROVIDERS: ATTEND Physical Medicine & Rehabilitation Sports Medicine
DX: M19.042 Primary osteoarthritis, left hand (principal); E78.00 Pure hypercholesterolemia, unspecified; J45.909 Unspecified asthma, uncomplicated; F32.9 Major depressive disorder, single episode, unspecified; K21.9 Gastro-esophageal reflux disease without esophagitis; K44.9 Diaphragmatic hernia without obstruction or gangrene; E78.5 Hyperlipidemia, unspecified; Z87.891 Personal history of nicotine dependence; Z98.51 Tubal ligation status; Z79.82 Long term (current) use of aspirin

== ENCOUNTER → 2017-10-24 | Outpatient (CLI) | payer OTHER ==
[~2017-10-24] MED LIST changes: -ALBUTEROL HFA INHALER 8.5 GM INH ONE; -ATROPINE SULFATE 0.1 MG/ML 5ML SYR IV PRN; -BUPIVACAINE 0.5 % 5 MG/1 ML MPF 30ML VIAL ONE; -BUPIVACAINE/EPINEPHRINE 0.5% MPF 1:200,000 30 ML VIAL ONE; -CEFAZOLIN 1000MG IV PUSH 7.5 ML IV SCH; -DEXAMETHASONE SOD INJ 4 MG/ML VIAL ONE; -EpHEDrine SULFATE 50MG/5ML SYR ONE; -EpHEDrine SULFATE INJ 50 MG/ML AMP IV PRN; -FENTANYL CITRATE INJ 50 MCG/1 ML 2 ML VIAL ONE; -LACTATED RINGER'S 1000ML 1,000 ML IV SCH; -LIDOCAINE HCL 1% 20 ML VIAL ONE; -LIDOCAINE HCL 2% 2 ML VIAL (20MG/ML) ONE; -LIDOCAINE/EPINEPHRINE 1% 20 ML VIAL ONE; -MIDAZOLAM HCL 1 MG/ML 2ML VIAL ONE; -MoRPHine SULFATE 2 MG/ML CARP IV PRN; -ONDANSETRON INJ 2 MG/ML 2 ML VIAL IV PRN; -ONDANSETRON INJ 2 MG/ML 2 ML VIAL ONE; -OXYCODONE/ACETAMINOPHEN 5-325 TAB ONE; -OXYCODONE/ACETAMINOPHEN 5-325 TAB PO PRN; -PHENYLEPHRINE HCL INJ 10 MG/ML VIAL ONE; -PROPOFOL IV EMULSION 10 MG/ML 20 ML VIAL IV ONE; -ROPIVACAINE 0.5% 5 MG/ML 30 ML VIAL ONE; -SODIUM CHLORIDE 0.9% 1000ML 1,000 ML IV SCH
== END | disposition home or self-care (01) ==
LOC: C.RDSM 10:57
PROVIDERS: ATTEND Physical Medicine & Rehabilitation Sports Medicine
DX: M18.12 Unilateral primary osteoarthritis of first carpometacarpal joint, left hand (principal)

== ENCOUNTER → 2017-11-21 | Outpatient (CLI) | payer OTHER | END | disposition home or self-care (01) | LOC: C.RDSM 12:16 | PROVIDERS: ATTEND Physical Medicine & Rehabilitation Sports Medicine | DX: S52.531D Colles' fracture of right radius, subsequent encounter for closed fracture with routine healing (principal); X58.XXXD Exposure to other specified factors, subsequent encounter ==

== ENCOUNTER → 2018-01-08 | Day surgery (SDC) | payer OTHER ==
[2017-12-31 11:33] VITALS: Ht 157.5 cm; Wt 62.3 kg
[~2018-01-08] VITALS: Ht 157.5 cm; Wt 62.3 kg
[~2018-01-08] MED LIST changes: +ACET-1256 PO; +ASPI-390 PO; -HYDR-5688 PO; +LIDOCAINE HCL 2% 2 ML VIAL (20MG/ML) ONE; +PROPOFOL IV EMULSION 10 MG/ML 20 ML VIAL ONE; +SODIUM CHLORIDE 0.9% 500ML 500 ML IV ONE; +VALA500T60 PO
--- NOTE | 2018-01-08 13:05 | Endo History and Physical ---
History & Physical Date of Service: January 08, 2018. Chief Complaint: Diarrhea Referring Physician: Max Barros History of Present Illness 62 yo CF who presents for colonoscopy secondary to diarrhea. Past Medical History Fractures, Asthma, Other, Depression Past Surgical History Hx Cardiac Surgery: No Hx Internal Defibrillator: No Hx Pacemaker: No Hx Abdominal Surgery: Yes (TUBAL LIGATION) Hx of Implantable Prosthesis: No Hx Post-Op Nausea and Vomiting: Yes (PONV X 1 YRS AGO) Hx Cancer Surgery: No Hx Thoracic Surgery: No Hx Orthopedic: Yes (RT THUMB LIGAMENT RECONSTRUCTION, RT RCR, LT TIB/FIB REPAIR X8) Hx Urinary Tract Surgery: No Family History IBD Social History Smoking Status: Former Smoker Hx Substance Use: No Hx Alcohol Use: Yes ("VERY RARELY") Allergies Coded Allergies: NO KNOWN DRUG ALLERGIES (Verified Allergy, Unknown, NONE, 12/31/17) Shellfish (Verified Allergy, Unknown, HIVES, 12/31/17) Current Medications Reported Home Medications Medications Dose Route/Sig Max Daily Dose Days Date Category Tylenol (Acetaminophen) 500 Mg Tab 1,000 Mg PO PRN 12/31/17 Reported Excedrin Migraine (Bsmgkne-Rjcyjxgxnmioe-Kzxxkqcb) 1 Tab Tab 1 Tab PO PRN 12/31/17 Reported Valtrex (Valacyclovir HCl) 500 Mg Tab 500 Mg PO QAM 12/31/17 Reported Ventolin Hfa (Albuterol) 200 Puffs/76875 Mcg Aers 2-4 Puffs INH Q6H PRN 09/30/17 Reported Boniva (Ibandronate Sodium) 150 Mg Tab 150 Mg PO MONTHLY 09/30/17 Reported Flovent Hfa (Fluticasone Propionate) 120 Puffs/92140 Mcg Aero 2 Puffs INH QAM 09/30/17 Reported Lipitor (Atorvastatin Calcium) 10 Mg Tab 10 Mg PO QPM 09/30/17 Reported Zantac (Ranitidine HCl) 150 Mg Tab 150 Mg PO QPM 09/30/17 Reported Probiotic (Probiotic Product) 1 Tab Tab 1 Tab PO QAM 09/30/17 Reported Calcium + D (Calcium Carbonate-Vitamin D) 1 Tab Tab 1 Tab PO BID 09/30/17 Reported Vitamin D3 (Cholecalciferol) 2,000 Unit Cap 1 Cap PO QAM 09/30/17 Reported Vitamin D3 (Cholecalciferol) 1,000 Unit Tab 1 Tab PO QPM 09/30/17 Reported Aspirin Ec (Aspirin) 81 Mg Tab 81 Mg PO HS 09/30/17 Reported Effexor Extended Rel (Venlafaxine Hcl) 150 Mg Capcr 150 Mg PO QAM 09/30/17 Reported Multivitamin (Multivitamins) Tab 1 Tab PO QPM 07/15/10 Reported Vital Signs Weight (Kilograms): 62.27 Height (Feet): 5 Height (Inches): 2 Date Time Temp Pulse Resp B/P (MAP) Pulse Ox O2 Delivery O2 Flow Rate FiO2 01/08/18 12:54 36.6 94 20 131/74 (93) 98 Room Air Physical Exam General Appearance: WD/WN, no apparent distress Respiratory/Chest: Auscultation: breath sounds normal Cardiovascular: Heart Auscultation: RRR Abdomen: Bowel Sounds: normal Inspection & Palpation: soft, non-distended, no tenderness, guarding & rebound Assessment and Plan Assessment: 62 yo CF who presents for colonoscopy secondary to diarrhea. Plan: Proceed with colonoscopy.
--- NOTE | 2018-01-08 13:54 | Discharge Instructions ---
Endoscopy Patient Instructions Date / Procedure(s) Performed January 08, 2018. Colonoscopy Allergy Information Coded Allergies: NO KNOWN DRUG ALLERGIES (Verified Allergy, Unknown, NONE, 12/31/17) Shellfish (Verified Allergy, Unknown, HIVES, 12/31/17) Discharge Date / Findings January 08, 2018. Diverticulosis Internal hemorrhoids Random colon biopsies Stool studies Medication Instructions OK to resume all medications today as prescribed Reported Home Medications Medications Dose Route/Sig Max Daily Dose Days Date Category Tylenol (Acetaminophen) 500 Mg Tab 1,000 Mg PO PRN 12/31/17 Reported Excedrin Migraine (Ahmfuqy-Ydykgctyayrzi-Qnxcqyis) 1 Tab Tab 1 Tab PO PRN 12/31/17 Reported Valtrex (Valacyclovir HCl) 500 Mg Tab 500 Mg PO QAM 12/31/17 Reported Ventolin Hfa (Albuterol) 200 Puffs/23502 Mcg Aers 2-4 Puffs INH Q6H PRN 09/30/17 Reported Boniva (Ibandronate Sodium) 150 Mg Tab 150 Mg PO MONTHLY 09/30/17 Reported Flovent Hfa (Fluticasone Propionate) 120 Puffs/59154 Mcg Aero 2 Puffs INH QAM 09/30/17 Reported Lipitor (Atorvastatin Calcium) 10 Mg Tab 10 Mg PO QPM 09/30/17 Reported Zantac (Ranitidine HCl) 150 Mg Tab 150 Mg PO QPM 09/30/17 Reported Probiotic (Probiotic Product) 1 Tab Tab 1 Tab PO QAM 09/30/17 Reported Calcium + D (Calcium Carbonate-Vitamin D) 1 Tab Tab 1 Tab PO BID 09/30/17 Reported Vitamin D3 (Cholecalciferol) 2,000 Unit Cap 1 Cap PO QAM 09/30/17 Reported Vitamin D3 (Cholecalciferol) 1,000 Unit Tab 1 Tab PO QPM 09/30/17 Reported Aspirin Ec (Aspirin) 81 Mg Tab 81 Mg PO HS 09/30/17 Reported Effexor Extended Rel (Venlafaxine Hcl) 150 Mg Capcr 150 Mg PO QAM 09/30/17 Reported Multivitamin (Multivitamins) Tab 1 Tab PO QPM 07/15/10 Reported Provider Instructions Activity Restrictions - No exercising or heavy lifting for 24 hours. - Do not drink alcohol the day of the procedure. - Do not drive a car or operate machinery until the day after the procedure. - Do not make any important decisions or sign important papers in 24 hours after the procedure. Following Day: - Return to full activity which may include returning to work/school. Diet Start your diet with liquids and light foods (jello, soup, juice, toast). Then eat your usual diet if not nauseated. Treatment For Common After Affects For mild abdominal pain, bloating, or excessive gas: - Rest - Eat lightly - Lie on right side Follow-Up Information Follow-up with Max Barros as scheduled Anesthesia Information What You Should Know You have had a procedure that required some medicine to reduce anxiety and discomfort. This treatment is called moderate sedation. After receiving the treatment, you may be sleepy, but you will be able to breathe on your own. The effects of the treatment may last for several hours. Follow these instructions along with Activity/Diet recommendations noted above: * Do NOT do anything where dizziness or clumsiness would be dangerous. * Rest quietly at home today, then you can be up and about tomorrow. * Have a responsible person stay with you the rest of today. * You may have had an I.V. today. If so, you may take the dressing off later today. Recommendations Call your doctor if: * Trouble breathing * Continuous vomiting for more than 24 hours * Temperature above 101 degrees * Severe abdominal pain or bloating * Pain not relieved by pain medicine ordered * There is increased drainage or redness from any incision * A large amount of rectal bleeding greater than 2-3 tablespoons. (If you had a polyp/s removed or have hemorrhoids, a small amount of blood - from the rectum is to be expected.) * You have any unanswered questions or concerns. IN THE EVENT OF A SERIOUS EMERGENCY, GO TO THE NEAREST EMERGENCY ROOM Your discharge instructions were prepared by provider Juan Pablo Resendiz. Patient Instructions Signature Page Talita Crandlal Patient (or Guardian) Signature/Date: I have read and understand the instructions given to me by my caregivers. Caregiver/RN/Doctor Signature/Date: The above-named patient and/or guardian has received patient instructions on this date. + Original Patient Signature Page (only) stays with chart. Please make copy for patient.
--- NOTE | 2018-01-08 14:17 | GI REPORT ---
Patient Name: Talita Crandall Procedure Date: 01/08/2018 1:08 PM Date of : 1955 Admit Type: Outpatient Age: 62 Gender: Female Attending MD: Juan Pablo Resendiz DO Procedure: Colonoscopy Providers: Juan Pablo Resendiz DO Referring MD: Rahul Rothman Indications: Chronic diarrhea Medicines: Monitored Anesthesia Care Complications: No immediate complications. Estimated Blood Loss: Estimated blood loss: none. Procedure: Pre-Anesthesia Assessment: - Prior to the procedure, a History and Physical was performed, and patient medications and allergies were reviewed. The patient's tolerance of previous anesthesia was also reviewed. The risks and benefits of the procedure and the sedation options and risks were discussed with the patient. All questions were answered, and informed consent was obtained. Prior Anticoagulants: The patient has taken aspirin, last dose was 1 day prior to procedure. ASA Grade Assessment: II - A patient with mild systemic disease. After reviewing the risks and benefits, the patient was deemed in satisfactory condition to undergo the procedure. After I obtained informed consent, the scope was passed under direct vision. Throughout the procedure, the patient's blood pressure, pulse, and oxygen saturations were monitored continuously. The scope was introduced through the anus and advanced to the terminal ileum. The colonoscopy was performed without difficulty. The patient tolerated the procedure well. The quality of the bowel preparation was good. The terminal ileum, ileocecal valve, appendiceal orifice, and rectum were photographed. Findings: The perianal and digital rectal examinations were normal. Multiple small-mouthed diverticula were found in the sigmoid colon. Non-bleeding internal hemorrhoids were found during retroflexion. The hemorrhoids were small. Several random biopsies were obtained with cold forceps for histology in the entire colon. Fluid aspiration for stool studies was performed in the entire colon. Impression: - Diverticulosis in the sigmoid colon. - Non-bleeding internal hemorrhoids. - Several random biopsies were obtained in the entire colon. - Fluid aspiration was performed. Recommendation: - Resume previous diet. - Continue present medications. - Repeat colonoscopy for surveillance based on pathology results. - Return to primary care physician as previously scheduled. Juan Pablo Resendiz DO 01/08/2018 2:16:58 PM This report has been signed electronically. Note Initiated On: 01/08/2018 1:08 PM Number of Addenda: 0 I attest to the content of the Intraoperative Record and orders documented therein, exceptions below {[id number]}
[2018-01-08 14:21] VITALS: BP 129/81; PULSE 86; O2SAT 100
--- NOTE | 2018-01-08 14:39 | Anesthesiology Progress Note ---
Anesthesia Post Op Note Date & Time January 08, 2018 at 14:39 Vital Signs Pain Intensity: 0 Vital Signs Past 12 Hours Date Time Temp Pulse Resp B/P (MAP) Pulse Ox O2 Delivery O2 Flow Rate FiO2 01/08/18 14:21 86 16 129/81 (97) 100 Room Air 01/08/18 14:06 93 16 120/88 (99) 98 Room Air 01/08/18 13:56 101/62 (75) 01/08/18 13:51 86 16 90/50 (63) 100 Room Air 01/08/18 12:54 36.6 94 20 131/74 (93) 98 Room Air Notes Mental Status: alert / awake / arousable, participated in evaluation Pt Amnestic to Procedure: Yes Nausea / Vomiting: adequately controlled Pain: adequately controlled Airway Patency, RR, SpO2: stable & adequate BP & HR: stable & adequate Hydration State: stable & adequate Anesthetic Complications: no major complications apparent
== END | disposition home or self-care (01) ==
LOC: C.GI 12:23
PROVIDERS: ATTEND Internal Medicine
DX: R19.7 Diarrhea, unspecified (principal); K57.30 Diverticulosis of large intestine without perforation or abscess without bleeding; K64.8 Other hemorrhoids; J45.909 Unspecified asthma, uncomplicated; M19.90 Unspecified osteoarthritis, unspecified site; F32.9 Major depressive disorder, single episode, unspecified; Z98.51 Tubal ligation status; Z79.899 Other long term (current) drug therapy; Z87.891 Personal history of nicotine dependence; Z91.013 Allergy to seafood

== ENCOUNTER → 2018-04-06 | Outpatient (CLI) | payer OTHER ==
[~2018-04-06] MED LIST changes: -LIDOCAINE HCL 2% 2 ML VIAL (20MG/ML) ONE; -PROPOFOL IV EMULSION 10 MG/ML 20 ML VIAL ONE; -SODIUM CHLORIDE 0.9% 500ML 500 ML IV ONE
== END | disposition home or self-care (01) ==
LOC: C.RDSM 11:45
PROVIDERS: ATTEND Physical Medicine & Rehabilitation Sports Medicine
DX: M25.511 Pain in right shoulder (principal)